=== PATIENT | male | born 1975 | race Caucasian/White ===

== ENCOUNTER → 2017-10-27 | Outpatient (CLI) | payer OTHER | LOC: COL.RAD 13:45 | DX: M23.222 Derangement of posterior horn of medial meniscus due to old tear or injury, left knee (principal) ==

== ENCOUNTER 2021-04-09 06:26 | Day surgery (SDC) | payer OTHER ==
[~2021-04-09] VITALS: Ht 177.8 cm; Wt 78.9 kg
[2021-04-09] MEDS ORDERED: LIPITOR 40MG TA40 MG PO (06:56)
[2021-04-09] MEDS ORDERED: PRISTIQ 50 MG T50 MG PO (06:56)
[2021-04-09 07:15] VITALS: BP 127/82; PULSE 74; TEMP 98.4
[2021-04-09] MEDS ORDERED: NORCO 325 MG-51 TAB PO (08:28)
[2021-04-09 10:30] VITALS: BP 128/75; PULSE 68
--- NOTE | 2021-04-09 10:30 | NUR ---
Patient returns to room 8 per cart from PACU accompanied by Jodie RN and is awake and alert. IV fluids infusing and site is free of redness. Exofin dressing clean and dry on lap sites with wound edges well approximated. No bleeding or drainage noted. Denies pain or nausea. Spouse in room. Siderails up x2 and call light in reach. Temp 98.5.
[2021-04-09 10:45] VITALS: BP 124/77; PULSE 68
--- NOTE | 2021-04-09 10:45 | NUR ---
Drinking water and eating muffin. Continues to deny pain or nausea.
[2021-04-09 10:52] VITALS: TEMP 98.3
[2021-04-09 11:00] VITALS: BP 129/75; PULSE 61
--- NOTE | 2021-04-09 11:00 | NUR ---
Room air sats 98%. Continues to drink water and tolerated muffin. States that he is beginning to have slight abdominal soreness.
--- NOTE | 2021-04-09 11:05 | NUR ---
Assisted up to the bathroom and gait is steady. Denies feeling dizzy or nauseated with movement. Voids and returns to room. Medicated with Bybee 5mg one tab for incisional pain.
--- NOTE | 2021-04-09 11:10 | NUR ---
IV discontinued and site is free of redness or swelling. Patient dresses self.
--- NOTE | 2021-04-09 11:30 | NUR ---
Dismissal instructions given and patient voices uderstanding of these.
--- NOTE | 2021-04-09 11:37 | NUR ---
Patient dismissed to home driven by spouse and taken to vehicle per wheelchair and assisted into vehicle with dismissal instructions in hand.
== END 2021-04-09 11:37 | disposition home or self-care (01) ==
LOC: SDCO 06:26
DX: K40.90 Unilateral inguinal hernia, without obstruction or gangrene, not specified as recurrent (principal); E78.00 Pure hypercholesterolemia, unspecified; F41.9 Anxiety disorder, unspecified; F32.A Depression, unspecified; Z79.899 Other long term (current) drug therapy; Z87.891 Personal history of nicotine dependence; Z90.89 Acquired absence of other organs; Z80.0 Family history of malignant neoplasm of digestive organs; Z83.3 Family history of diabetes mellitus
CPT/HCPCS: C1781; J0690; J1100; J1170; J1885; J2250; J2405; J2704; J3010; J7120